=== PATIENT | male | born 1940 | race Caucasian/White ===

== ENCOUNTER → 2017-09-25 | Outpatient (CLI) | payer MEDICARE, OTHER ==
[2017-09-25] MEDS: IOHEXOL 300MG/ML 150 ML BTL (16:02)
[2017-09-25] MEDS: SOD CHLORIDE 0.9% 100 ML (16:02)
== END | disposition home or self-care (01) ==
LOC: C/S 15:26
DX: C15.9 Malignant neoplasm of esophagus, unspecified (principal); J98.11 Atelectasis; I51.7 Cardiomegaly
CPT/HCPCS: 71260; 74177